=== PATIENT | male | born 1955 | race Caucasian/White ===

== ENCOUNTER → 2016-08-31 | Outpatient (CLI) | payer OTHER ==
[2016-08-31 13:25] LABS: HEMOGLOBIN 12.2 gm/dl (14.0-17.5); RED BLOOD COUNT 4.41 M/UL (4.20-5.50); WHITE BLOOD COUNT 7.3 K/UL (4.5-11.0)
== END ==
LOC: LAB 12:30
PROVIDERS: Family Medicine
DX: D64.9 Anemia, unspecified (principal)
CPT/HCPCS: 36415; 85025

== ENCOUNTER 2021-04-03 13:38 | Inpatient (IN) | payer MEDICARE, BC ==
[~2021-04-03] VITALS: Ht 182.9 cm; Wt 104.3 kg
[~2021-04-03 13:38] MED LIST: ECOTRIN81 MG PO; NITROGLYCERIN0.4 MG SL; PAXIL10 MG PO; TERBINAFINE HC250 MG PO
[2021-04-03 14:11] LABS: HEMOGLOBIN 11.6 gm/dl (14.0-17.5); RED BLOOD COUNT 3.71 M/UL (4.20-5.50); WHITE BLOOD COUNT 11.8 K/UL (4.5-11.0)
[2021-04-03 14:33] LABS: BUN/CREATININE RATIO 37 (0-10)
[2021-04-03 22:35] LABS: HEMOGLOBIN 9.9 gm/dl (14.0-17.5)
[2021-04-04 06:14] LABS: HEMOGLOBIN 9.7 gm/dl (14.0-17.5)
[2021-04-04 06:18] LABS: RED BLOOD COUNT 3.18 M/UL (4.20-5.50); WHITE BLOOD COUNT 6.5 K/UL (4.5-11.0)
[2021-04-04 06:46] LABS: BUN/CREATININE RATIO 28 (0-10)
[2021-04-04] MEDS ORDERED: MULTI-VITAMIN1 EACH PO (12:34)
[2021-04-04] MEDS ORDERED: CITRACAL SOFT1 EACH PO (12:35)
[2021-04-04 14:08] LABS: HEMOGLOBIN 9.5 gm/dl (14.0-17.5)
[2021-04-04] MEDS ORDERED: PROTONIX 40 MG40 M1 PO (16:26)
[2021-04-04] MEDS ORDERED: BROMOCRIPTINE2.5 MG PO (23:19)
[2021-04-04] MEDS ORDERED: CLARITIN10 MG PO (23:20)
== END 2021-04-04 17:05 | disposition home or self-care (01) | DRG 378 ==
LOC: ER1 13:38 → CDU 17:48
PROVIDERS: Physician Assistant; Surgery; ADMIT Internal Medicine Infectious Disease
PROC: 0DJ08ZZ Inspection of Upper Intestinal Tract, Via Natural or Artificial Opening Endoscopic (ICD-10-PCS; principal; 2021-04-04 12:30)
DX: K28.4 Chronic or unspecified gastrojejunal ulcer with hemorrhage (principal); D62 Acute posthemorrhagic anemia; G91.9 Hydrocephalus, unspecified; E66.01 Morbid (severe) obesity due to excess calories; E11.65 Type 2 diabetes mellitus with hyperglycemia; Z20.822 Contact with and (suspected) exposure to COVID-19; D35.2 Benign neoplasm of pituitary gland; Z79.82 Long term (current) use of aspirin; Z79.899 Other long term (current) drug therapy; Z98.890 Other specified postprocedural states; Z90.49 Acquired absence of other specified parts of digestive tract; Z88.0 Allergy status to penicillin; Z88.8 Allergy status to other drugs, medicaments and biological substances; Z82.0 Family history of epilepsy and other diseases of the nervous system; Z68.29 Body mass index [BMI] 29.0-29.9, adult
CPT/HCPCS: 36415; 70450; 80053; 81001; 82272; 82550; 82553; 82962; 83036; 83605; 83735; 83874; 84484; 85014; 85018; 85025; 85610; 86850; 86900; 86901; 93005; 96365; 96375; 99285; C9113; J0696; J1956; J2405; J2704; J7030; J7120; Q9967; U0002

== ENCOUNTER → 2021-04-17 | Outpatient (CLI) | payer MEDICARE, BC ==
[~2021-04-17] MED LIST changes: +BROMOCRIPTINE2.5 MG PO; +CITRACAL SOFT1 EACH PO; +CLARITIN10 MG PO; +MULTI-VITAMIN1 EACH PO; +PROTONIX 40 MG40 M1 PO
== END ==
LOC: MRI 09:09
DX: G91.9 Hydrocephalus, unspecified (principal); R94.02 Abnormal brain scan
CPT/HCPCS: 70553; A9577

== ENCOUNTER → 2021-04-22 | Outpatient (CLI) | payer MEDICARE, BC | LOC: SLEEP 08:45 | DX: G47.33 Obstructive sleep apnea (adult) (pediatric) (principal); G47.61 Periodic limb movement disorder | CPT/HCPCS: 95810 ==